=== PATIENT | female | born 1970 | race African-American/Black ===

== ENCOUNTER 2018-10-04 18:14 | Emergency (ER) | payer OTHER ==
[~2018-10-04] VITALS: Ht 167.6 cm; Wt 119.9 kg
[2018-10-04 18:25] VITALS: BP 161/92
--- NOTE | 2018-10-04 18:29 | NUR ---
pt ambulates back to the lobby
--- NOTE | 2018-10-04 18:47 | NUR ---
bib family with c/o productive cough with green plegm, rhinorrhea, head ache 7/10, dizzy, nausea for over a week; took theraflu with no relief.VSS; PATIENT POSITIONED FOR COMFORT; HOB ELEVATED; BEDRAILS UP X1; BED DOWN. ER MD MADE AWARE OF PT STATUS.
[2018-10-04] MEDS ORDERED: cefTRIAXone 250 MG in LIDOCAINE MPF 1% - 5 mL VIAL 0.9 ML IM ONE (20:00)
[2018-10-04 20:54] VITALS: BP 160/90
--- NOTE | 2018-10-04 20:55 | NUR ---
Patient discharged with v/s stable. Written and verbal after care instructions given and explained. Patient alert, oriented and verbalized understanding of instructions. Ambulatory with steady gait. All questions addressed prior to discharge. ID band removed. Patient advised to follow up with PMD. Rx of AMOXICILLIN, ALLERGY LORATADINE, ALBUTEROL, AND IBUPROFEN given. Patient educated on indication of medication including possible reaction and side effects. Opportunity to ask questions provided and answered.
== END 2018-10-04 20:55 | disposition home or self-care (01) ==
LOC: MED 18:14
DX: J32.9 Chronic sinusitis, unspecified (principal); J30.9 Allergic rhinitis, unspecified; J40 Bronchitis, not specified as acute or chronic; E11.9 Type 2 diabetes mellitus without complications; I10 Essential (primary) hypertension
CPT/HCPCS: 96372; 99283; J0696; J2001